=== PATIENT | female | born 1975 | race Caucasian/White ===

== ENCOUNTER → 2021-03-22 | Outpatient (CLI) | payer SELFPAY ==
[2021-03-28 10:31] LABS: HPV Reflexed? NOT INDICATED
== END | disposition home or self-care (01) ==
LOC: LABSPEC 14:28
PROVIDERS: Visit Provider Obstetrics & Gynecology
DX: Z12.4 Encounter for screening for malignant neoplasm of cervix (principal)
CPT/HCPCS: 88175; G0145

== ENCOUNTER → 2021-03-26 09:13 | Outpatient (CLI) | payer SELFPAY ==
--- NOTE | 2021-03-26 09:17 | US_ITS ---
STUDY: ULTRASOUND BREAST - RIGHT REASON FOR EXAM: Female, 45 years old. Palpable lump in the right breast. TECHNIQUE: Axial and longitudinal images of the RIGHT breast were performed with a high resolution ultrasound transducer. # OF IMAGES: 19 COMPARISON: Comparison is made with prior mammogram done earlier today. FINDINGS: RIGHT Breast: There is a 6 mm x 5 mm x 4 mm slightly lobular hypoechoic solid nodule at the 12 o''clock addition of the breast at 3 cm from nipple. A biopsy is recommended. US/Breast Limited Unilateral IMPRESSION: 6 mm x 5 mm x 4 mm slightly lobular hypoechoic solid nodule at the 12 o''clock position of the breast and 3 cm from the nipple. Biopsy is recommended. ASSESSMENT CATEGORY: BIRADS Category 4: Suspicious - Biopsy Should Be Considered. A letter regarding these results will be sent to the patient by the facility within 30 days. Electronically Signed: Lenny Santos MD at 12:55 EDT , Service support ,
--- NOTE | 2021-03-26 09:17 | BI_ITS ---
MAMMOGRAPHY - BILATERAL DIAGNOSTIC REASON FOR EXAM: Female, 45 years old. Remote left excisional breast biopsy. PERTINENT HISTORY: Non-contributory. TECHNIQUE: Digital bilateral breast michelle (3D mammographic acquisition) in the CC and MLO projections. 2-D mediolateral oblique (MLO) and craniocaudad (CC) views of both breasts were obtained. CAD: Full Field Digital Mammography with Computer Added Detection was performed. COMPARISON: None. Baseline examination. FINDINGS: Breast Composition: The breasts are extremely dense, which lowers the sensitivity of mammography. There are no dominant masses or suspicious calcifications. No other significant abnormalities are identified. BI/DIAG MAMM W/CAD, BILAT IMPRESSION: Negative diagnostic mammogram. With the patient''s history of a palpable lump in the right breast, correlation with ultrasound is recommended. ASSESSMENT CATEGORY: BIRADS Category 0: Incomplete. Need additional imaging evaluation. A letter regarding these results will be sent to the patient by the facility within 30 days. Approximately 10% of breast cancers are not detected by mammography. A normal mammogram should not delay biopsy of a clinically suspicious abnormality. Electronically Signed: Lenny Santos MD at 10:27 EDT , Service support ,
== END ==
PROVIDERS: Referring Provider Obstetrics & Gynecology; Visit Provider Obstetrics & Gynecology
DX: N63.10 Unspecified lump in the right breast, unspecified quadrant (principal)
CPT/HCPCS: 76642; 77062; 77066; G0279

== ENCOUNTER → 2021-03-30 | Outpatient (CLI) | payer OTHER, SELFPAY | END | disposition home or self-care (01) | LOC: LABSPEC 04-02 09:02 | PROVIDERS: Referring Provider Surgery; Visit Provider Surgery | DX: R92.8 Other abnormal and inconclusive findings on diagnostic imaging of breast (principal) ==

== ENCOUNTER → 2021-03-30 | Outpatient (CLI) | payer OTHER, SELFPAY ==
--- NOTE | 2021-03-30 10:00 | BRBX_PTH ---
PATIENT: JANICE PIERCE LOC: [facility] U#:[id number] AGE/SX: 45/F ROOM: RE03/30/[address]: Dr. Reginald Miller MD : 1975 BED: DIS: 03/30/2021 SPEC #: [id number] RECD: 03/30/21 12:06 STATUS: VIOLA DAVID #: [id number] ROMARIO: 03/30/21 10:[address]: Reginald Miller DEPT: SURGICAL PATHOLOGY RECD BY: Isabelle Claudio ENTERED: 04/02/21 10:35 SP TYPE: BREAST BX OTHR DR: No Primary Care Phys Tissues: Right breast, NOS Procedures: Surgery Specimen Level IV HEADER OPERATION: Right breast biopsy PRE-OP DIAGNOSIS: Right abnormal breast ultrasound TISSUE SUBMITTED: Right breast tissue MICROSCOPIC DIAGNOSIS Right breast, core biopsy: Fragments of benign breast tissue with chronic inflammation and histiocytic reaction. Negative for atypia or malignancy. See comment. SJ:izaiah 04/02/2021 COMMENT Correlation with clinical, radiologic findings and appropriate follow up are necessary. MICROSCOPIC DESCRIPTION Slides are reviewed. GROSS DESCRIPTION Received in fixative is one container labeled with the patient name and designated right breast. The specimen consists of multiple fragments of winchetser-yellow fibroadipose tissue that in aggregate measure 2 x 2 x 0.1 cm. The entire specimen is submitted in one cassette. / ARCHIE:izaiah 03/30/2021 TC:3 CPT: 73584
== END | disposition home or self-care (01) ==
LOC: LABSPEC 13:12
PROVIDERS: Referring Provider Surgery; Visit Provider Surgery
DX: R92.8 Other abnormal and inconclusive findings on diagnostic imaging of breast (principal)
CPT/HCPCS: 88305

== ENCOUNTER 2021-10-17 14:41 | Outpatient (CLI) | payer SELFPAY, OTHER ==
--- NOTE | 2021-10-17 14:44 | US_ITS ---
STUDY: ULTRASOUND BREAST - RIGHT REASON FOR EXAM: Female, 45 years old. Follow-up for prior right breast biopsy. TECHNIQUE: Axial and longitudinal images of the RIGHT breast were performed with a high resolution ultrasound transducer. # OF IMAGES: 17 COMPARISON: Comparison is made with prior examination dated 03/26/2021. FINDINGS: RIGHT Breast: Persistent 5 mm x 3 mm x 4 mm slightly lobular hypoechoic nodular density at the 12 o''clock position of the breast at 3 cm from the nipple. A tissue clip marker is seen within. US/Breast Limited Unilateral IMPRESSION: A tissue clip marker is seen within a 5 mm x 3 mm x 4 mm hypoechoic solid nodule at the 12 o''clock position of the breast at 3 sinus and nipple. ASSESSMENT CATEGORY: BIRADS Category 2: Benign. A letter regarding these results will be sent to the patient by the facility within 30 days. Electronically Signed: Lenny Santos MD at 13:40 EST ,
== END 2021-10-17 23:59 | disposition home or self-care (01) ==
LOC: OPUS 14:42
PROVIDERS: Visit Provider Surgery
DX: N63.15 Unspecified lump in the right breast, overlapping quadrants (principal)
CPT/HCPCS: 76642

== ENCOUNTER → 2022-05-07 | Outpatient (CLI) | payer SELFPAY, OTHER ==
--- NOTE | 2022-05-07 09:08 | US_ITS ---
STUDY: ULTRASOUND BREAST - RIGHT REASON FOR EXAM: Female, 46 years old. Follow-up for prior right ultrasound-guided breast biopsy. TECHNIQUE: Axial and longitudinal images of the RIGHT breast were performed with a high resolution ultrasound transducer. # OF IMAGES: 6 COMPARISON: Comparison is made with prior ultrasound of the right breast dated 10/17/2021 and prior mammogram dated 05/07/2022. FINDINGS: RIGHT Breast: Stable 4 mm x 3 mm x 3 mm well-defined hypoechoic nodule at the 12 o''clock position in the breast at 3 cm from nipple. A tissue clip marker is seen within. US/Breast Limited Unilateral IMPRESSION: Stable examination. ASSESSMENT CATEGORY: BIRADS Category 2: Benign. A letter regarding these results will be sent to the patient by the facility within 30 days. Electronically Signed: Lenny Santos MD at 11:19 EDT ,
--- NOTE | 2022-05-07 09:35 | BI_ITS ---
MAMMOGRAPHY - BILATERAL DIAGNOSTIC REASON FOR EXAM: Female, 46 years old. History of prior right ultrasound breast biopsy and left excisional breast biopsy. PERTINENT HISTORY: Non-contributory. TECHNIQUE: Digital bilateral breast michelle (3D mammographic acquisition) in the CC and MLO projections. 2-D mediolateral oblique (MLO) and craniocaudad (CC) views of both breasts were obtained. CAD: Full Field Digital Mammography with Computer Added Detection was performed. COMPARISON: Comparison is made with prior study 03/26/2021. FINDINGS: Breast Composition: The breasts are extremely dense, which lowers the sensitivity of mammography. There are no dominant masses or suspicious calcifications. A tissue clip marker is seen in the anterior upper lateral aspect of the right breast in keeping with prior ultrasound-guided breast biopsy. No other significant abnormalities are identified. There has been no significant change since the prior study. BI/DIAG MAMM W/CAD, BILAT IMPRESSION: Stable bilateral diagnostic mammogram. One year follow-up recommended. (A) ASSESSMENT CATEGORY: BIRADS Category 2: Benign. A letter regarding these results will be sent to the patient by the facility within 30 days. Approximately 10% of breast cancers are not detected by mammography. A normal mammogram should not delay biopsy of a clinically suspicious abnormality. Electronically Signed: Lenny Santos MD at 10:50 EDT ,
== END | disposition home or self-care (01) ==
PROVIDERS: Visit Provider Surgery
DX: R92.8 Other abnormal and inconclusive findings on diagnostic imaging of breast (principal)
CPT/HCPCS: 76642; 77062; 77066; G0279

== ENCOUNTER → 2022-05-22 | Outpatient (CLI) | payer OTHER, SELFPAY ==
--- NOTE | 2022-05-22 15:00 | LES_PTH ---
PATIENT: JANICE PIERCE LOC: [facility] U#:[id number] AGE/SX: 46/F ROOM: RE05/22/[address]: Dr. Reginald Miller MD : 1975 BED: DIS: 05/22/2022 SPEC #: [id number] RECD: 05/22/22 16:09 STATUS: VIOLA DAVID #: [id number] ROMARIO: 05/22/22 15:[address]: Reginald Miller DEPT: SURGICAL PATHOLOGY RECD BY: Jagdeep Luis ENTERED: 05/23/22 07:49 SP TYPE: Lesion OTHR DR: No Primary Care Phys Tissues: Skin of back, NOS Procedures: Surgery Specimen Level IV HEADER OPERATION: Skin lesion removal left back PRE-OP DIAGNOSIS: Left back skin lesion TISSUE SUBMITTED: Skin lesion tissue MICROSCOPIC DIAGNOSIS Left back skin lesion, excisional biopsy: Compound nevus, completely excised. ARCHIE:izaiah 05/24/2022 MICROSCOPIC DESCRIPTION Slides are reviewed. GROSS DESCRIPTION Received in fixative is one container labeled with the patient's name and designated excision of skin lesion. The specimen consists of an ellipse of light winchester excised skin measuring 2.2 x 0.6 cm and a depth of excision measuring 1.2 cm. The specimen is inked, serially sectioned and totally submitted in two cassettes. Cassette 2 contains the tips. / AM:izaiah 05/23/2022 TC:1 CPT: 62931
== END | disposition home or self-care (01) ==
LOC: LABSPEC 16:15
PROVIDERS: Visit Provider Surgery
DX: D36.7 Benign neoplasm of other specified sites (principal)
CPT/HCPCS: 88305